=== PATIENT | female | born 1970 | race Caucasian/White ===

== ENCOUNTER → 2016-10-22 | Outpatient (REF) | payer OTHER ==
[2016-10-22 20:07] LABS: MEAN CORPUSCULAR HEMOGLOBIN 30.8 pg (27.0-33.0); MEAN CORPUSCULAR HGB CONC 33.3 g/dl (32.0-36.5); MEAN CORPUSCULAR VOLUME 92.3 fl (80.0-96.0); RED CELL DISTRIBUTION WIDTH 13.5 % (11.5-14.5); WHITE BLOOD COUNT 14.4 K/mm3 (4.0-10.0)
[2016-10-22 20:28] LABS: ALBUMIN 3.5 GM/DL (3.2-5.2); ALBUMIN/GLOBULIN RATIO 1.03 (1.00-1.93); BILIRUBIN,TOTAL 0.2 MG/DL (0.2-1.0); CALCIUM LEVEL 8.7 MG/DL (8.5-10.1); CREATININE FOR GFR 1.18 MG/DL (0.55-1.02); GLOMERULAR FILTRATION RATE 52.5 (>58); TOTAL PROTEIN 6.9 GM/DL (6.4-8.2)
== END ==
LOC: M SFHCLERA 16:06
PROVIDERS: ATTEND Physician Assistant
DX: R53.83 Other fatigue (principal)

== ENCOUNTER → 2017-05-14 | Outpatient (REF) | payer OTHER | LOC: M SFHCLERA 09:13 | DX: I12.9 Hypertensive chronic kidney disease with stage 1 through stage 4 chronic kidney disease, or unspecified chronic kidney disease (principal); N18.9 Chronic kidney disease, unspecified ==

== ENCOUNTER → 2017-11-13 | Outpatient (REF) | payer OTHER ==
[2017-11-13 14:44] LABS: PROGESTERONE < 0.2 NG/ML
[2017-11-13 14:45] LABS: ESTRADIOL 35.1 PG/ML; LUTEINIZING HORMONE 37.1 mIU/mL
[2017-11-13 14:46] LABS: FOLLICLE STIMULATING HORMONE 56.3 mIU/mL
[2017-11-17 00:07] LABS: TESTOSTERONE FREE (DIRECT) 1.1 pg/mL (0.0-4.2)
[2017-11-17 00:07] LABS: ESTRONE SERUM 58 pg/mL (.)
== END ==
LOC: M LAB REF 12:47
DX: N95.1 Menopausal and female climacteric states (principal); F52.0 Hypoactive sexual desire disorder; E34.9 Endocrine disorder, unspecified

== ENCOUNTER → 2018-03-28 | Outpatient (CLI) | payer OTHER ==
[2018-03-28 17:07] LABS: BASO % 0.4 % (0.0-1.0); EOS # 0.3 10^3/uL (0.0-0.50); EOS % 3.1 % (0.0-3.0); HEMATOCRIT 40.9 % (36.0-47.0); HEMOGLOBIN 13.2 g/dl (12.0-15.5); IMMATURE GRANULOCYTE % 0.5 % (0-3.0); LYMPH # 2.5 10^3/uL (1.5-4.5); LYMPH % 24.5 % (24.0-44.0); MEAN CORPUSCULAR HEMOGLOBIN 29.8 pg (27.0-33.0); MEAN CORPUSCULAR HGB CONC 32.3 g/dl (32.0-36.5); MEAN CORPUSCULAR VOLUME 92.3 fl (80.0-96.0); MONO # 0.7 10^3/uL (0.0-0.8); MONO % 7.4 % (0.0-5.0); NEUTROPHILS # 6.4 10^3/uL (1.8-7.7); NEUTROPHILS % 64.1 % (36.0-66.0); PLATELET COUNT, AUTOMATED 255 10^3/uL (150-450); RED BLOOD COUNT 4.43 10^6/uL (4.00-5.40); RED CELL DISTRIBUTION WIDTH 12.7 % (11.5-14.5)
[2018-03-28 17:21] LABS: ALBUMIN 3.3 GM/DL (3.2-5.2); ALKALINE PHOSPHATASE 88 U/L (45-117); ALT/SGPT 22 U/L (12-78); ANION GAP 6 MEQ/L (8-16); AST/SGOT 11 U/L (7-37); BILIRUBIN,TOTAL 0.3 MG/DL (0.2-1.0); BLOOD UREA NITROGEN 19 MG/DL (7-18); CALCIUM LEVEL 8.5 MG/DL (8.5-10.1); CARBON DIOXIDE LEVEL 27 MEQ/L (21-32); CHLORIDE LEVEL 107 MEQ/L (98-107); CHOLESTEROL LEVEL 156 MG/DL (<200); CHOLESTEROL RISK RATIO 2.943 (<5); CREATININE FOR GFR 0.93 MG/DL (0.55-1.30); GLOMERULAR FILTRATION RATE > 60.0 (>58); GLUCOSE, FASTING 75 MG/DL (70-100); HDL CHOLESTEROL 53 MG/DL (>40); LDL CHOLESTEROL 89 MG/DL (<100); NON-HDL-C 103 MG/DL; SODIUM LEVEL 140 MEQ/L (136-145); TOTAL PROTEIN 6.6 GM/DL (6.4-8.2); TRIGLYCERIDES LEVEL 71 MG/DL (<150)
== END ==
LOC: M WUC 10:20
DX: I10 Essential (primary) hypertension (principal)
CPT/HCPCS: 84443

== ENCOUNTER → 2019-03-07 | Outpatient (CLI) | payer OTHER ==
[2019-03-07 13:17] LABS: CALCIUM LEVEL 8.7 MG/DL (8.5-10.1); CHOLESTEROL RISK RATIO 3.36 (<5); CREATININE FOR GFR 1.16 MG/DL (0.55-1.30); GLOMERULAR FILTRATION RATE 52.9 (>58); POTASSIUM SERUM 4.4 MEQ/L (3.5-5.1)
== END ==
LOC: M LRY 10:07
PROVIDERS: ATTEND Physician Assistant
DX: I10 Essential (primary) hypertension (principal)

== ENCOUNTER → 2020-05-01 | Outpatient (CLI) | payer OTHER ==
[2020-05-01 17:03] LABS: ALBUMIN 3.6 GM/DL (3.2-5.2); ALT/SGPT 22 U/L (12-78); BILIRUBIN,TOTAL 0.3 MG/DL (0.2-1.0); BLOOD UREA NITROGEN 14 MG/DL (7-18); CALCIUM LEVEL 8.9 MG/DL (8.5-10.1); CARBON DIOXIDE LEVEL 30 MEQ/L (21-32); CHLORIDE LEVEL 105 MEQ/L (98-107); CHOLESTEROL LEVEL 185 MG/DL (<200); CHOLESTEROL RISK RATIO 3.363 (<5); GLUCOSE, FASTING 72 MG/DL (70-100); HDL CHOLESTEROL 55 MG/DL (>40); LDL CHOLESTEROL 90 MG/DL (<100); NON-HDL-C 130 MG/DL; POTASSIUM SERUM 4.4 MEQ/L (3.5-5.1); SODIUM LEVEL 138 MEQ/L (136-145); TOTAL PROTEIN 7.3 GM/DL (6.4-8.2); TRIGLYCERIDES LEVEL 201 MG/DL (<150)
[2020-05-01 17:10] LABS: HEPATITIS B SURFACE ANTIBODY NEGATIVE (POSITIVE)
[2020-05-01 17:21] LABS: HEPATITIS B SURFACE ANTIGEN NEGATIVE (NEGATIVE)
[2020-05-01 17:49] LABS: HEPATITIS B CORE ANTIBODY IGM NEGATIVE (NEGATIVE)
[2020-05-03 14:08] LABS: HERPES ZOSTER, VARICELLA IgG 1697 index (Immune >165); HERPES ZOSTER, VARICELLA IgM <0.91 index (0.00-0.90); RUBEOLA IgG ANTIBODY 42.8 AU/mL (Immune >16.4)
== END ==
LOC: M WUC 12:05
PROVIDERS: ATTEND Nurse Practitioner Family
DX: Z00.00 Encounter for general adult medical examination without abnormal findings (principal)

== ENCOUNTER → 2020-07-19 | Outpatient (CLI) | payer OTHER ==
--- NOTE | 2020-07-19 10:21 | REP ---
INDICATION: PSORIASIS VULGARIS COMPARISON: None. TECHNIQUE: PA and lateral. FINDINGS: The mediastinum and cardiac silhouette are normal. The lung hernandez are clear and without acute consolidation, effusion, or pneumothorax. The skeletal structures are intact and normal. IMPRESSION: No acute cardiopulmonary process. <Electronically signed by David Hickey > 07/19/20 [id number]
== END ==
LOC: M WUC 09:46
PROVIDERS: ATTEND Nurse Practitioner
DX: L40.0 Psoriasis vulgaris (principal)

== ENCOUNTER 2021-03-13 08:35 | Emergency (ER) | payer OTHER ==
[~2021-03-13] VITALS: Ht 172.7 cm; Wt 118.0 kg
[2021-03-13] MEDS ORDERED: LISI20TA33 (08:48)
--- NOTE | 2021-03-13 11:57 | REP ---
INDICATION: Fall onto R knee. COMPARISON: None. TECHNIQUE: Five views FINDINGS: Linear lucency extending from the proximal shaft of the tibia vertically into the lateral tibial plateau just lateral to the lateral tibial spine. This represents a nondisplaced fracture. Tibial spines shows some spurring. I do not see narrowing of the medial or lateral compartments but there is narrowing of the patellofemoral joint laterally. A small fabella is seen posterior to the lateral femoral condyle. Minor degenerative changes at that near noted. Small effusions suggested. Proximal fibula, patella and distal femur are without a fracture. IMPRESSION: 1. Vertically oriented nondisplaced fracture extending from the proximal tibial shaft into the lateral tibial plateau just lateral to the lateral tibial spine. Some joint effusion is identified. There are no other fractures or definite loose bodies. A small fabella is seen posterior to the lateral femoral condyle as anatomic normal finding. Mild narrowing of the lateral patellofemoral joint. <Electronically signed by Kyle Rincon > 03/13/21 1222
[2021-03-13] MEDS ORDERED: NORCO, ANEXSIA 5/325MG TABLET (HYDROcodone/ACETAMINOPHEN) PO ONE (12:25)
--- NOTE | 2021-03-13 12:59 | REP ---
INDICATION: Known Prox tibia fracture, pre-op. COMPARISON: Radiographs today TECHNIQUE: Axial soft tissue and bone windows with coronal and sagittal bone window reconstructions. FINDINGS: Vertically oriented fracture from the proximal tibial shaft involving the posterior cortex into the lateral tibial plateau. Fracture also extends to the lateral tibial spine and avulses a portion of the medial tibial spine. There is mild comminution of the medial tibial spine involvement. The medial tibial spine fragments distracted but not significantly displaced. The origin of the PCL appears to be avulsed fragment from the posterior tibial plateau. Joint effusion evident. The patella shows slight narrowing of the lateral portion of patellofemoral compartment with a few mm of lateral subluxation but no dislocation or patellar fracture. Femoral condyles and distal femoral shaft/metaphysis are without fracture. Proximal fibula unremarkable. Quadriceps and patellar tendons grossly intact. IMPRESSION: 1. Vertically oriented fracture of the proximal tibial shaft along its posterior cortex to the lateral tibial plateau and involving the lateral tibial spine and extending into the medial tibial spine. There is some mild comminution of the medial tibial spine and distraction but no significant displacement within the joint. There also appears to be avulsion of the PCL origin from the posterior tibia. Joint effusion present. No fracture of the patella, distal femur or proximal fibula. <Electronically signed by Kyle Rincon > 03/13/21 1208
[2021-03-13 13:20] VITALS: BP 179/84
[2021-03-13] MEDS ORDERED: ISOVUE-370 76% 100ML VIAL As Ordered ONE (13:45)
[2021-03-13 13:51] LABS: BASO % 0.3 % (0.0-1.0); EOS % 0.1 % (0.0-3.0); HEMATOCRIT 41.3 % (36.0-47.0); HEMOGLOBIN 13.5 g/dl (12.0-15.5); LYMPH # 1.3 10^3/uL (1.5-5.0); LYMPH % 8.4 % (24.0-44.0); MEAN CORPUSCULAR HEMOGLOBIN 29.5 pg (27.0-33.0); MEAN CORPUSCULAR HGB CONC 32.7 g/dl (32.0-36.5); MEAN CORPUSCULAR VOLUME 90.2 fl (80.0-96.0); MONO # 0.8 10^3/uL (0.0-0.8); NEUTROPHILS # 13.6 10^3/uL (1.5-8.5); NEUTROPHILS % 85.6 % (36.0-66.0); PLATELET COUNT, AUTOMATED 250 10^3/uL (150-450); RED BLOOD COUNT 4.58 10^6/uL (4.00-5.40); WHITE BLOOD COUNT 15.9 10^3/uL (4.0-10.0)
--- NOTE | 2021-03-13 14:28 | REP ---
INDICATION: per Ortho, known PCL avulsion COMPARISON: None. TECHNIQUE: CT angiogram of the pelvis and bilateral lower extremities was performed with intravenous administration of 100 cc of Isovue 370, without oral contrast. 3D MIP reconstruction images performed. FINDINGS: Distal abdominal aorta: No aneurysm or dissection. The bilateral common iliac, external iliac, internal iliac, common femoral, superficial femoral and popliteal arteries are widely patent with no stenosis or occlusion. The trifurcation arteries are patent bilaterally. There is 2 vessel runoff into each foot. The peroneal arteries are visualized to the distal 3rd of the lower legs bilaterally. Pelvis: No mass. No adenopathy or free fluid. Osseous structures: The nondisplaced fracture of the proximal right tibia is again noted. There is a bone island in the right femoral head.. IMPRESSION: No evidence of arterial occlusion, stenosis, aneurysm or dissection of the bilateral lower extremity arterial systems. Nondisplaced fracture proximal right tibia. <Electronically signed by Erasto Patterson > 03/13/21 [id number]
[2021-03-13] MEDS ORDERED: ASPI81CH33 PO (14:38)
[2021-03-13] MEDS ORDERED: HYDR-3713 PO (14:40)
== END 2021-03-13 15:26 | disposition home or self-care (01) ==
LOC: M ED 08:35
DX: S82.144A Nondisplaced bicondylar fracture of right tibia, initial encounter for closed fracture (principal); S82.114A Nondisplaced fracture of right tibial spine, initial encounter for closed fracture; W19.XXXA Unspecified fall, initial encounter; Y92.099 Unspecified place in other non-institutional residence as the place of occurrence of the external cause; Y93.9 Activity, unspecified; Y99.9 Unspecified external cause status; I10 Essential (primary) hypertension
CPT/HCPCS: 36415; 73564; 73700; 73706; 80047; 85025; 99284; Q9967

== ENCOUNTER → 2021-03-15 | Outpatient (CLI) | payer OTHER ==
[~2021-03-15] MED LIST: ASPI81CH33 PO; HYDR-3713 PO; LISI20TA33
--- NOTE | 2021-03-15 12:15 | REP ---
INDICATION: RT TIBIAL FX. COMPARISON: 03/13/2021 TECHNIQUE: Five views FINDINGS: The hairline fracture seen involving the proximal tibia is unchanged. There are no new fractures or significant changes from the prior exam. Previously reported tibial spine fractures also unchanged. IMPRESSION: No significant change <Electronically signed by Manpreet Cantu > 03/15/21 1215
== END ==
LOC: M SOG 09:59
PROVIDERS: ATTEND Orthopaedic Surgery
DX: S82.144A Nondisplaced bicondylar fracture of right tibia, initial encounter for closed fracture (principal); X58.XXXA Exposure to other specified factors, initial encounter; Y92.9 Unspecified place or not applicable; Y93.9 Activity, unspecified; Y99.9 Unspecified external cause status

== ENCOUNTER → 2021-04-03 | Outpatient (CLI) | payer OTHER ==
--- NOTE | 2021-04-03 10:57 | REP ---
INDICATION: NONDISPLACED BICONDYLAR FX RT TIBIA. COMPARISON: Prior CT of 05/13/2020. No prior knee MRI is for comparison. TECHNIQUE: Sagittal spin-echo proton density, T2 STIR and T2 FLASH. Coronal spin-echo proton density and fat suppressed proton density. Axial fat suppressed proton density. FINDINGS: There is grade 2 signal change seen in the posterior horn of the medial meniscus. The anterior horn is within normal limits. There is grade 2 signal change seen in the posterior horn of the lateral meniscus. The anterior horn is within normal limits. The anterior and posterior cruciate ligaments are intact. The quadriceps and patellar tendons are intact. The medial and lateral collateral ligaments are intact. The medial and lateral patellar retinacula are intact. There is a joint effusion. There is no Liriano's cyst. There is patchy T2 hyper signal seen in the proximal tibial metaphysis and diaphysis. This is seen in conjunction with a vertically oriented serpiginous low signal band in the mid tibial diaphysis extending to the metaphysis where it conjoins with additional curvilinear low signal bands involving both medial and lateral tibial spines and plateaus. IMPRESSION: 1. There is no evidence of acute internal derangement. 2. Known proximal tibial fracture, as described above, and previously on the CT of 03/13/2021 and seen today with marrow edema. If an exact comparison for evidence of fracture displacement is desired than follow-up with CT so it can be compared to the prior CT is recommended. 3. There is a slight complex joint effusion. <Electronically signed by Manpreet Cantu > 04/03/21 [id number]
== END ==
LOC: M RAD 07:28
PROVIDERS: ATTEND Orthopaedic Surgery
DX: S82.144A Nondisplaced bicondylar fracture of right tibia, initial encounter for closed fracture (principal); X58.XXXA Exposure to other specified factors, initial encounter; Y92.9 Unspecified place or not applicable; Y99.9 Unspecified external cause status; Y93.9 Activity, unspecified

== ENCOUNTER → 2021-04-09 | Outpatient (CLI) | payer OTHER ==
--- NOTE | 2021-04-15 10:31 | REP ---
INDICATION: RT TIBIA FX. COMPARISON: Right knee series dated 03/15/2021 TECHNIQUE: AP and lateral views of the right tibia/fibula. FINDINGS: Nondisplaced fracture along the tibial plateau and vertically oriented nondisplaced fracture extending caudally through the proximal tibial metadiaphysis again noted and essentially unchanged. IMPRESSION: No significant change from prior examination. <Electronically signed by David Hickey > 04/15/21 1026
== END ==
LOC: M SOG 15:22
PROVIDERS: ATTEND Orthopaedic Surgery
DX: S82.101D Unspecified fracture of upper end of right tibia, subsequent encounter for closed fracture with routine healing (principal); X58.XXXD Exposure to other specified factors, subsequent encounter; Y92.9 Unspecified place or not applicable; Y93.9 Activity, unspecified; Y99.9 Unspecified external cause status

== ENCOUNTER → 2021-05-01 | Outpatient (CLI) | payer OTHER ==
--- NOTE | 2021-05-01 15:40 | REP ---
INDICATION: RT TIBIA FX. COMPARISON: 03/13/2021 TECHNIQUE: AP and lateral views of the right knee FINDINGS: Continued poorly evaluated vertically oriented fracture through the proximal tibia extending to the tibial spines. IMPRESSION: Intra-articular fracture involving the proximal tibia again noted. <Electronically signed by David Hickey > 05/01/21 [id number]
== END ==
LOC: M SOG 15:21
PROVIDERS: ATTEND Orthopaedic Surgery
DX: S82.144D Nondisplaced bicondylar fracture of right tibia, subsequent encounter for closed fracture with routine healing (principal); X58.XXXD Exposure to other specified factors, subsequent encounter; Y92.9 Unspecified place or not applicable; Y93.9 Activity, unspecified; Y99.9 Unspecified external cause status

== ENCOUNTER → 2021-06-05 | Outpatient (CLI) | payer OTHER | LOC: M SOG 15:39 | PROVIDERS: ATTEND Orthopaedic Surgery | DX: S82.144D Nondisplaced bicondylar fracture of right tibia, subsequent encounter for closed fracture with routine healing (principal); X58.XXXD Exposure to other specified factors, subsequent encounter; Y92.9 Unspecified place or not applicable; Y93.9 Activity, unspecified; Y99.9 Unspecified external cause status ==

== ENCOUNTER → 2021-08-07 | Outpatient (CLI) | payer OTHER | LOC: M RAD 16:10 | PROVIDERS: ATTEND Orthopaedic Surgery | DX: M25.561 Pain in right knee (principal); R60.0 Localized edema ==

== ENCOUNTER → 2021-08-07 | Outpatient (CLI) | payer OTHER | LOC: M SOG 15:20 | PROVIDERS: ATTEND Orthopaedic Surgery | DX: M25.561 Pain in right knee (principal); M17.11 Unilateral primary osteoarthritis, right knee ==

== ENCOUNTER → 2021-09-13 | Outpatient (CLI) | payer OTHER ==
[2021-09-13 13:27] LABS: ALBUMIN 3.5 GM/DL (3.2-5.2); BILIRUBIN,TOTAL 0.4 MG/DL (0.2-1.0); CALCIUM LEVEL 9.4 MG/DL (8.5-10.1); CHOLESTEROL RISK RATIO 3.695 (<5); CREATININE FOR GFR 1.17 MG/DL (0.55-1.30); GLOMERULAR FILTRATION RATE 51.9 (>51); POTASSIUM SERUM 4.1 MEQ/L (3.5-5.1)
== END ==
LOC: M WUC 09:13
PROVIDERS: ATTEND Nurse Practitioner Family
DX: I10 Essential (primary) hypertension (principal)

== ENCOUNTER → 2025-02-27 | Outpatient (CLI) | payer OTHER ==
[2025-02-27 12:57] LABS: ALT/SGPT 15.0 U/L (7.0-40); AST/SGOT 16.0 U/L (<34); CALCIUM LEVEL 8.8 MG/DL (8.5-10.1); CARBON DIOXIDE LEVEL 25.0 MMOL/L (20-31); CHLORIDE LEVEL 107.0 MMOL/L (98-107); CHOLESTEROL LEVEL 143.0 MG/DL (<200); CHOLESTEROL RISK RATIO 3.99 (<5); CREATININE FOR GFR 1.45 MG/DL (0.55-1.30); GLOMERULAR FILTRATION RATE 42.6 (>51); LDL CHOLESTEROL 87.6 MG/DL (<100); NON-HDL-C 107.2 MG/DL; POTASSIUM SERUM 4.1 MMOL/L (3.5-5.1); SODIUM LEVEL 143.0 MMOL/L (136-145); TRIGLYCERIDES LEVEL 98.0 MG/DL (<150)
[2025-02-27 13:22] LABS: ESTIMATED AVERAGE GLUCOSE 97.0 MG/DL (60-110)
== END ==
LOC: M WUC 09:04
PROVIDERS: ATTEND Nurse Practitioner Family
DX: E66.9 Obesity, unspecified (principal)